=== PATIENT | female | born 1955 | race Caucasian/White ===

== ENCOUNTER 2018-04-17 09:58 | Emergency (ER) | payer OTHER ==
[~2018-04-17] VITALS: Ht 157.5 cm; Wt 79.4 kg
[2018-04-17 10:01] VITALS: BP 123/69
--- NOTE | 2018-04-17 10:55 | ED GI/GU/ABDOMINAL COMPLAINT ---
History of Present Illness General Chief Complaint: Abdominal Pain/Flank Pain Stated Complaint: RIGHT SIDED FLANK PAIN Source: patient Exam Limitations: no limitations Vital Signs & Intake/Output Vital Signs & Intake/Output Vital Signs Date Time Temp Pulse Resp B/P B/P Pulse O2 O2 Flow FiO2 Mean Ox Delivery Rate 04/17 1001 96.1 60 18 123/69 98 Room Air Room Air Allergies Coded Allergies: Penicillins (Severe, FACIAL SWELLING 04/17/18) Triage Note: PT TO ED WITH C/O UPPER ABD EPIGASTRIC PAIN SINCE EARLY THIS AM, "IT WOKE ME UP". NAUSEA AND VOMITED BILE X 1 THIS AM, TOOK TUMS THIS AM. Triage Nurses Notes Reviewed? yes ? N Is pt currently ? No Onset: Abrupt Timing: recent history Location: epigastric Radiation: no radiation Activities at Onset: none No Modifying Factors: none HPI: 62-year-old female comes into the emergency room for further evaluation of epigastric pain that woke her up out of her sleep last night around 3 AM. Pain radiates around to the right side of her back. She had some shortness of breath with the pain. Denies any fever chills vomiting or changes in bowel movement. Previous hysterectomy. Denies any cardiac history. (Madi Alvarez) Past History Travel History Traveled to [place] past 21 day No Medical History Any Pertinent Medical History? see below for history Neurological: NONE EENT: NONE Cardiovascular: NONE Respiratory: NONE Gastrointestinal: NONE Hepatic: NONE Renal: NONE Musculoskeletal: NONE Psychiatric: NONE Endocrine: NONE Blood Disorders: NONE Cancer(s): NONE MANAGER STRATEGIC DEVELOPMENT/Reproductive: NONE Surgical History Surgical History: hysterectomy Psychosocial History What is your primary language Serbian Tobacco Use: Never used ETOH Use: occasional use Illicit Drug Use: denies illicit drug use Family History Hx Contributory? No (Madi Alvarez) Review of Systems Review of Systems Constitutional: Reports: no symptoms. EENTM: Reports: no symptoms. Respiratory: Reports: see HPI. Cardiovascular: Reports: see HPI. GI: Reports: see HPI. Genitourinary: Reports: no symptoms. Musculoskeletal: Reports: no symptoms. Skin: Reports: no symptoms. Neurological/Psychological: Reports: no symptoms. Hematologic/Endocrine: Reports: no symptoms. Immunologic/Allergic: Reports: no symptoms. All Other Systems: Reviewed and Negative (Madi Alvarez) Physical Exam Physical Exam General Appearance: well developed/nourished, no apparent distress, alert Head: atraumatic, normal appearance Eyes: Bilateral: normal appearance. Ears, Nose, Throat, Mouth: hearing grossly normal, moist mucous membrane Neck: normal inspection Respiratory: normal breath sounds, no respiratory distress Gastrointestinal: soft, tenderness (ruq) Back: normal inspection Extremities: normal range of motion Neurologic/Psych: awake, alert, oriented x 3 Skin: intact, normal color Core Measures ACS in differential dx? No Sepsis Present: No Sepsis Focused Exam Completed? No (Madi Alvarez) Progress Differential Diagnosis: AMI, biliary colic, cholecystitis, gastritis, hepatitis, pancreatitis, PUD/GERD, SBO Plan of Care: Orders Procedure Date/time Status Add-on Test (ER Only) 04/17 1054 Active EKG 04/17 1054 Active TROPONIN LEVEL 04/17 1045 Complete URINALYSIS 04/17 1030 Complete LIPASE 04/17 1030 Complete COMPREHENSIVE METABOLIC PANEL 04/17 1030 Complete CBC WITHOUT DIFFERENTIAL 04/17 1030 Complete Laboratory Tests 04/17/18 1050: Urinalysis MANY H, Urine Color YEL, Urine Clarity HAZY H, Urine pH 7.0, Ur Specific [place] 1.015, Urine Protein NEG, Urine Ketones NEG, Urine Nitrite NEG, Urine Bilirubin NEG, Urine Urobilinogen 0.2, Ur Leukocyte Esterase TRACE H, Ur Microscopic SEDIMENT EXAMINED, Urine RBC 1-3, Urine WBC RARE, Urine Hemoglobin TRACE-INTACT, Urine Glucose NEG 04/17/18 1045: Anion Gap 7, Estimated GFR > 60, BUN/Creatinine Ratio 43.3 H, Glucose 131 H, Calcium 10.2, Total Bilirubin 0.2, AST 29, ALT 38, Alkaline Phosphatase 57, Troponin I < 0.01, Total Protein 6.8, Albumin 4.3, Globulin 2.5, Albumin/ Globulin Ratio 1.7, Lipase 288, CBC w Diff NO MAN DIFF REQ, RBC 4.90, MCV 88.5, MCH 30.2, MCHC 34.1, RDW 12.9, MPV 7.3 L, Gran % 86.2 H, Lymphocytes % 11.6 L , Monocytes % 1.7, Eosinophils % 0.4, Basophils % 0.1, Absolute Granulocytes 6.6 H, Absolute Lymphocytes 0.9 L, Absolute Monocytes 0.1, Absolute Eosinophils 0, Absolute Basophils 0 Diagnostic Imaging: Viewed by Me: Radiology Read, Ultrasound. Discussed w/RAD: Radiology Read, Ultrasound. Initial ED EKG: normal sinus rhythm, rate (55) (Madi Alvarez) Radiology Impression: PATIENT: KRISTY JACKSON PRESENT AGE: 62 PATIENT ACCOUNT NO: [id number] : 54 LOCATION: ER ORDERING PHYSICIAN: Madi MOJICA SERVICE DATE: 04/17/18 EXAM TYPE : US - US-LIMITED ABDOMEN EXAMINATION: US ABDOMEN LIMITED CLINICAL INFORMATION: RUQ pain. COMPARISON: None TECHNIQUE: Real-time imaging of the right upper quadrant abdominal viscera. FINDINGS: PANCREAS: Normal. LIVER: There is a 2.7 x 2.2 x 2.2 cm echogenic lesion in the right lobe of the liver. No other focal liver lesion is seen. Liver echotexture is normal. There is no intra or extrahepatic biliary duct dilatation. GALLBLADDER: There is a gallstone seen in the neck of the gallbladder that measures 1.2 x 0.6 x 1.1 cm. The gallbladder is slightly distended. The gallbladder wall is slightly thickened measuring 0.4 cm. The instructional design technologist reports the patient is tender over the gallbladder. Ultrasound appearance is suggestive of cholecystitis. COMMON BILE DUCT: Normal in caliber measuring 0.7 cm in diameter. RIGHT KIDNEY: Normal. No hydronephrosis. No renal calculi or focal parenchymal lesions. The kidney measures 10.3 cm in maximum dimension. FREE FLUID: None. IMPRESSION: Gallstone in the neck of the gallbladder. Slightly distended gallbladder with gallbladder wall thickening. Ultrasound appearance is suggestive of cholecystitis. 2 x 3 cm echogenic lesion in the right lobe of the liver. This may represent a benign hemangioma. If the patient has history of liver disease or known malignancy, further evaluation with CT or MR with contrast. DICTATED BY: Dena Aguilar MD DATE/TIME DICTATED:04/17/181213 [employer] APPRAISER:BECKIE DATE/TIME TRANSCRIBED:04/17/181213 CONFIDENTIAL, DO NOT COPY WITHOUT APPROPRIATE AUTHORIZATION. <Electronically signed in Other Vendor System> SIGNED BY: Dena Aguilar MD 04/17/18 1221 CXR Impression: PATIENT: KRISTY JACKSON PRESENT AGE: 62 PATIENT ACCOUNT NO: [id number] : 54 LOCATION: [facility] ORDERING PHYSICIAN: Madi MOJICA SERVICE DATE: 04/17/18 EXAM TYPE: RAD - XRY-CHEST XRAY, TWO VIEWS EXAMINATION: XR CHEST CLINICAL INFORMATION: Epigastric abdominal pain. Shortness of breath. COMPARISON: None TECHNIQUE: 2 views of the chest were obtained. FINDINGS: No significant abnormality is noted involving the heart, lungs, mediastinum, bony thorax or soft tissues. No focal consolidation or other abnormality. No free air seen in the upper abdomen. There is no pleural effusion. Mild spondylosis is present in the thoracic spine. IMPRESSION: Unremarkable examination. DICTATED BY: Ara Marquez MD DATE/TIME DICTATED: 04/17/181144 [employer]CIAL [employer] APPRAISER:BECKIE DATE/TIME TRANSCRIBED:04/17/181144 CONFIDENTIAL, DO NOT COPY WITHOUT APPROPRIATE AUTHORIZATION. <Electronically signed in Other Vendor System> SIGNED BY: Ara Marquez MD 04/17/18 1144 Comments: Patient is currently pain-free. Patient does not want to wait to talk to surgery and she would feel more comfortable if she discussed it with her primary care physician prior to having surgery. Patient states that she will immediately come back if she develops any fevers, any further pain, any vomiting or she has any other concerns. (Gopal LEE,Fosetr Nuno) Departure Departure Condition: Stable Departure Forms: Customer Survey General Discharge Information Comments 04/17/18 We were waiting on surgery to call back with the patient wanted to leave because her symptoms resolved. Dr. Herron discharge the patient (Ross MOJICA,Madi) Departure Disposition: HOME OR SELF CARE Clinical Impression Primary Impression: Biliary colic Referrals: Tameka LEE,Christian Bullock (PCP/Family) Marquis LEE,Freddy N. Additional Instructions: RETURN IMMEDIATELY IF YOUDEVELOP ANY PAIN,FEVERS, VOMITING OR FORANY OTHER CONCERNS PA/FOOD DEMONSTRATOR Co-Sign Statement Statement: ED Attending supervision documentation- [X] I saw and evaluated the patient. I have also reviewed all the pertinent lab results and diagnostic results. I agree with the findings and the plan of care as documented in the PA's/FOOD DEMONSTRATOR's documentation. [X] I have reviewed the ED Record and agree with the PA's/FOOD DEMONSTRATOR's documentation. [] Additions or exceptions (if any) to the PAs/FOOD DEMONSTRATOR's note and plan are summarized below: [] (Gopal LEE,Foster Nuno)
[2018-04-17 11:00] LABS: ABSOLUTE BASOPHIL COUNT 0 /CUMM (0.0-0.2); ABSOLUTE EOSINOPHIL COUNT 0 /CUMM (0.0-0.7); ABSOLUTE GRANULOCYTE CT 6.6 /CUMM (1.4-6.5); ABSOLUTE LYMPH COUNT 0.9 /CUMM (1.2-3.4); ABSOLUTE MONOCYTE COUNT 0.1 /CUMM (0.10-0.60); BASOPHIL % 0.1 % (0.0-2.0); EOSINOPHIL % 0.4 % (0-5); HEMATOCRIT 43.4 % (37-47); MEAN CORPUSCULAR HGB 30.2 PG (27.0-31.0); MEAN CORPUSCULAR HGB CONC 34.1 G/DL (33.0-37.0); MEAN CORPUSCULAR VOLUME 88.5 FL (81.0-99.0); MEAN PLATELET VOLUME 7.3 FL (7.4-10.4); PLATELET COUNT 239 /CUMM (130-400); RBC DISTRIBUTION WIDTH 12.9 % (11.5-14.5); WHITE BLOOD CELL COUNT 7.6 /CUMM (4.8-10.8)
[2018-04-17 11:39] LABS: GRANULOCYTE % 86.2 % (42.2-75.2)
--- NOTE | 2018-04-17 11:49 | RADIOLOGY REPORT ---
EXAMINATION: XR CHEST CLINICAL INFORMATION: Epigastric abdominal pain. Shortness of breath. COMPARISON: None TECHNIQUE: 2 views of the chest were obtained. FINDINGS: No significant abnormality is noted involving the heart, lungs, mediastinum, bony thorax or soft tissues. No focal consolidation or other abnormality. No free air seen in the upper abdomen. There is no pleural effusion. Mild spondylosis is present in the thoracic spine. IMPRESSION: Unremarkable examination.
--- NOTE | 2018-04-17 12:21 | ULTRASOUND REPORT ---
EXAMINATION: US ABDOMEN LIMITED CLINICAL INFORMATION: RUQ pain. COMPARISON: None TECHNIQUE: Real-time imaging of the right upper quadrant abdominal viscera. FINDINGS: PANCREAS: Normal. LIVER: There is a 2.7 x 2.2 x 2.2 cm echogenic lesion in the right lobe of the liver. No other focal liver lesion is seen. Liver echotexture is normal. There is no intra or extrahepatic biliary duct dilatation. GALLBLADDER: There is a gallstone seen in the neck of the gallbladder that measures 1.2 x 0.6 x 1.1 cm. The gallbladder is slightly distended. The gallbladder wall is slightly thickened measuring 0.4 cm. The certified cytotechnologist reports the patient is tender over the gallbladder. Ultrasound appearance is suggestive of cholecystitis. COMMON BILE DUCT: Normal in caliber measuring 0.7 cm in diameter. RIGHT KIDNEY: Normal. No hydronephrosis. No renal calculi or focal parenchymal lesions. The kidney measures 10.3 cm in maximum dimension. FREE FLUID: None. IMPRESSION: Gallstone in the neck of the gallbladder. Slightly distended gallbladder with gallbladder wall thickening. Ultrasound appearance is suggestive of cholecystitis. 2 x 3 cm echogenic lesion in the right lobe of the liver. This may represent a benign hemangioma. If the patient has history of liver disease or known malignancy, further evaluation with CT or MR with contrast.
== END 2018-04-17 12:40 ==
LOC: ERH 09:58
PROVIDERS: Physician Assistant Medical
DX: K80.50 Calculus of bile duct without cholangitis or cholecystitis without obstruction (principal); F10.10 Alcohol abuse, uncomplicated
CPT/HCPCS: 71046; 81001; 93005; 93010